=== PATIENT | male | born 1955 | race Caucasian/White ===

== ENCOUNTER 2018-10-27 10:57 | Day surgery (SDC) | payer OTHER ==
[~2018-10-27] VITALS: Ht 182.9 cm; Wt 83.0 kg
[~2018-10-27 10:57] MED LIST: LIDOCAINE 2% (SDV) 5 ML INJ ONE
[2018-10-27 12:20] VITALS: Ht 182.9 cm; Wt 83.0 kg
[2018-10-27] MEDS ORDERED: LISINOPRIL (12:26)
[2018-10-27] MEDS ORDERED: MELOXICAM (12:26)
[2018-10-27] MEDS ORDERED: ASPIRIN (12:26)
[2018-10-27] MEDS ORDERED: TRAZODONE (12:26)
[2018-10-27] MEDS ORDERED: METFORMIN (12:26)
[2018-10-27] MEDS ORDERED: [UNRECOGNIZED DRUG - OTHER] (12:26)
[2018-10-27] MEDS ORDERED: TAMSULOSIN (12:26)
[2018-10-27 12:34] VITALS: BP 137/85; PULSE 84; RESP 14
[2018-10-27] MEDS ORDERED: PROPOFOL 40 ML ONE (12:38)
--- NOTE | 2018-10-27 12:43 | PREAC ---
Date/Time of Note Date/Time of Note DATE: 10/27/18 TIME: 12:42 Anesthesia Eval and Record Evaluation Time Pre-Procedure Interview DATE: 10/27/18 TIME: 12:42 Age 63 Sex male NPO: 8 hrs Preoperative diagnosis abd pain Planned procedure colonoscopy Past Medical History Past Medical History: Includes Cardio: HTN Endo: Diabetes Pulm: Smoking Hx, COPD Surgery & Anesthesia Issues No known issue Meds Anticoagulation: No Beta Mitchell within 24 hr: No Reason Beta Mitchell not given: Pt. not on B-Mitchell, COPD Reported Medications [Nitroglycerin Prn] No Conflict Check 10/27/18 [Trazodone] No Conflict Check 10/27/18 [Lisinopril] No Conflict Check 10/27/18 [Metformin] No Conflict Check 10/27/18 [Tamsulosin] No Conflict Check 10/27/18 [Meloxicam] No Conflict Check 10/27/18 [Aspirin] No Conflict Check 10/27/18 Meds reviewed: Yes Allergies Coded Allergies: No Known Allergy (Unverified , 10/27/18) Allergies Reviewed: Yes Labs/Studies Labs Reviewed: Reviewed by anesthesiologist test: N/A Studies: ECG, CXR Pre-procedure Exam Last vitals Vital Signs Date Temp Pulse Resp B/P (MAP) Pulse Ox O2 O2 Flow FiO2 Time Delivery Rate 10/27/18 98.7 84 14 137/85 97 Room Air 12:34 (102) Airway: Adequate mouth opening, Adequate thyromental dist Mallampati: Mallampati III Teeth: Normal Lung: Normal Heart: Normal ASA Physical Status ASA physical status: 3 Emergency: None Planned Anesthetic General/MAC: MAC Planned Pain Management Parenteral pain med Pre-operative Attestations Prior to commencing anesthesia and surgery, the patient was re-evaluated, there was verification of: *The patient's identity *The results of appropriate recent lab work and preoperative vital signs *The above evaluation not changing prior to induction *Anesthetic plan, risk benefits, alternative and complications discussed with patient/family; questions answered; patient/family understands, accepts and wishes to proceed. AVERY ALEXANDER MD Oct 27, 2018 12:43
[2018-10-27 13:34] VITALS: BP 108/67; PULSE 81; RESP 20
--- NOTE | 2018-10-28 07:25 | PAC ---
Date/Time of Note Date/Time of Note DATE: 10/28/18 TIME: 07:25 Post-Anesthesia Notes Post-Anesthesia Note Last documented vital signs Vital Signs Date Temp Pulse Resp B/P (MAP) Pulse Ox O2 O2 Flow FiO2 Time Delivery Rate 10/27/18 81 20 108/67 93 Room Air 13:34 (81) 10/27/18 98.7 12:34 Activity: WNL Respiratory function: WNL Cardiovascular function: WNL Mental status: Baseline Pain reasonably controlled: Yes Hydration appropriate: Yes Nausea/Vomiting absent: Yes AVERY ALEXANDER MD Oct 28, 2018 07:25
== END 2018-10-27 14:38 | disposition home or self-care (01) ==
LOC: GIL 10:57 → EDBD 14:30 → GIL 14:38
PROVIDERS: ATTEND Internal Medicine Gastroenterology
DX: Z12.11 Encounter for screening for malignant neoplasm of colon (principal); K64.8 Other hemorrhoids; D12.5 Benign neoplasm of sigmoid colon; K57.30 Diverticulosis of large intestine without perforation or abscess without bleeding
CPT/HCPCS: 88305